=== PATIENT | female | born 1990 | race Caucasian/White ===

== ENCOUNTER 2017-06-16 19:28 | Emergency (ER) | payer OTHER ==
[~2017-06-16] VITALS: Ht 162.6 cm; Wt 113.4 kg
[2017-06-16 19:30] VITALS: BP 151/88
--- NOTE | 2017-06-16 19:59 | NUR ---
RICARDO MORGAN AT BEDSIDE FOR EVAL.
== END 2017-06-16 20:26 | disposition home or self-care (01) ==
LOC: ER 19:28
DX: S09.90XA Unspecified injury of head, initial encounter (principal); W22.8XXA Striking against or struck by other objects, initial encounter; Y93.89 Activity, other specified; Y92.89 Other specified places as the place of occurrence of the external cause; Y99.8 Other external cause status
CPT/HCPCS: 99281; A4606; Z7610; Z7502